=== PATIENT | male | born 1965 | race Caucasian/White ===

== ENCOUNTER 2018-09-06 15:24 | Outpatient (REF) | payer MEDICARE, MEDICAID, SELFPAY ==
[2018-09-06 21:57] LABS: ALT 30 U/L (12-78); AST 13 U/L (15-37); Alkaline Phosphatase 94 U/L (46-116); Anion Gap 9.5 mmol/L (3-11); BUN 15 mg/dL (7-18); Bilirubin, Total 0.4 mg/dL (0.2-1.0); CO2 26.5 mmol/L (21.0-32.0); CREATININE 0.69 mg/dL (0.70-1.30); Calcium 8.8 mg/dL (8.5-10.1); Chloride 103 mmol/L (98-107); Glucose 99 mg/dL (70-100); Potassium 4.3 mmol/L (3.5-5.1); Sodium 139 mmol/L (136-145); Total Protein 6.8 g/dL (6.4-8.2)
== END 2018-09-06 15:44 ==
LOC: NCHCN 15:24
PROVIDERS: PCP Family Medicine; Visit Provider Specialist/Technologist Athletic Trainer
DX: I10 Essential (primary) hypertension (principal); Z51.81 Encounter for therapeutic drug level monitoring
CPT/HCPCS: 80053

== ENCOUNTER 2019-03-12 22:41 | Outpatient (REF) | payer MEDICARE, MEDICAID, SELFPAY ==
[2019-03-12 22:16] LABS: ALT 31 U/L (16-63); AST 18 U/L (15-37); Albumin 4.1 g/dL (3.4-5.0); Alkaline Phosphatase 95 U/L (46-116); Anion Gap 9.1 mmol/L (3-11); BUN 14 mg/dL (7-18); Bilirubin, Total 0.6 mg/dL (0.2-1.0); CO2 26.9 mmol/L (21.0-32.0); CREATININE 0.98 mg/dL (0.70-1.30); Calcium 8.7 mg/dL (8.5-10.1); Chloride 107 mmol/L (98-107); Glucose 101 mg/dL (70-100); Potassium 4.2 mmol/L (3.5-5.1); Sodium 143 mmol/L (136-145); Total Protein 6.9 g/dL (6.4-8.2)
== END 2019-03-12 23:01 ==
LOC: NCHCN 22:41
PROVIDERS: Specialist/Technologist Athletic Trainer; PCP Family Medicine; Visit Provider Family Medicine
DX: I10 Essential (primary) hypertension (principal); F17.200 Nicotine dependence, unspecified, uncomplicated
CPT/HCPCS: 80053

== ENCOUNTER 2019-04-22 09:42 | Emergency (ER) | payer MEDICARE, MEDICAID, SELFPAY ==
[2019-04-22 09:48] VITALS: BP 172/102; PULSE 120; RESP 16; TEMP 36.6; O2SAT 94
[2019-04-22] MEDS: Ibuprofen 600 MG TAB PO (10:00)
--- NOTE | 2019-04-22 10:05 | ED.GENADUL_ITS ---
Discharge Plan Disposition Patient Disposition: HOME Condition: Stable Discharge Details Chief Complaint: Nk/Back Pain Clinical Impression: Acute torticollis Primary Care Provider: Judith Amezcua V ED Provider: Marv Pulliam Home Meds and New Rx's Prescriptions: No Action aspirin [Aspir-81] 81 MG tablet,delayed release (DR/EC) 81 mg PO DAILY RF: 0 diazepam 2 MG tablet 1 mg PO HS PRNRF: 0 risperidone [Risperdal] 3 MG tablet 3 mg PO DAILY RF: 0 valsartan-hydrochlorothiazide [Diovan HCT] 1 TAB tablet 160 mg PO DAILY RF: 0 Discharge Instructions Instructions: Spasmodic Torticollis (ED) Additional Instructions: 1. Drink plenty of fluids. 2. Continue all medications as prescribed. 3. Acetaminophen 1000mg every 4 hours (up to 5 time a day) and/or ibuprofen 600mg every 6 hours as needed for fever or pain. 4. Ice to sore area frequently. Return to the Emergency Department (ED) if your condition worsens, does not improve as expected, or for ANY other concerns. Specifically, return if you have new or uncontrolled pain, worsening fever, difficulty breathing, vomiting, or are unable to drink fluids. Medical Decision Making [id number] presents with acute onset of right-sided soft tissue paracervical neck pain and tenderness. Exam consistent with acute torticollis. Discussed likely inflammatory etiology with patient. Treated in the ED with oral ibuprofen discharged with a plan for continued OTC analgesia. Given usual and customary return instructions prior to discharge. Medical Records Medical records reviewed: Yes I reviewed the patient's medical records. HPI 53-year-old gentleman with a past medical history which includes GERD, hypertension, and schizoaffective disorder. Presents with acute onset of right posterior lateral neck pain. Symptoms were present when he woke this morning. They are worse with direct palpation, positional change and head rotation. He denies any associated fever/chills, visual changes, difficulty with speech, difficulty swallowing, or upper extremity weakness. He has taken no analgesia for his symptoms prior to presentation. General Date/Time Provider Initiated Documentation: 04/22/19 09:58 . Related Data Home Medications Medication Instructions Recorded Confirmed risperidone [Risperdal] 3 mg PO DAILY 12/04/15 04/22/19 valsartan-hydrochlorothiazide 160 mg PO DAILY 12/04/15 04/22/19 [Diovan HCT] aspirin [Aspir 81] 81 mg PO DAILY 01/12/16 04/22/19 diazepam 1 mg PO HS PRN 01/12/16 04/22/19 Allergies Allergy/AdvReac Type Severity Reaction Status Date / Time acetaminophen [From Percocet] Allergy Unverified 04/22/19 09:51 bupropion HCl Allergy Unverified 04/22/19 09:51 [From Wellbutrin] haloperidol [From Haldol] Allergy Unverified 04/22/19 09:51 haloperidol lactate Allergy Unverified 04/22/19 09:51 [From Haldol] oxycodone HCl [From Percocet] Allergy Unverified 04/22/19 09:51 General Stated Complaint: Nk/Back Pain LUZMARIA: 3 Review of Systems All systems reviewed & are unremarkable except as noted in HPI and below PFSH Medical History GERD (gastroesophageal reflux disease) Hypertension Schizoaffective disorder Tobacco dependence Surgical History Colonoscopy - IV Sedation (01/12/16) Social History Smoking/Tobacco Use Status: Current every day Tobacco Type: cigarettes Alcohol Intake: never Drug use: Never Exam Narrative Exam Narrative: Nursing note and vital signs have been reviewed and noted. GENERAL: alert, active, no acute distress, well -hydrated, well-nourished HEENT: atraumatic/normocephalic, PERRLA, EOMI, conjunctiva clear, external ears/canals normal, nasal mucosa normal NECK: supple, full range of motion; right-sided superior paracervical soft tissue tenderness. Palpation reproduced subjective pain. No significant erythema, induration or ecchymosis. CARDIOVASCULAR: nl pulses, no edema PULMONARY: nl effort, no audible wheezing or stridor ABDOMEN: non-distended EXTREMITY: normal muscle tone, all joints with FROM, no deformity NUERO: normal mentation, moving all extremities, normal stance and gait, PSYCH: alert and oriented SKIN: no new rashes or lesions Course Vital Signs Vital signs: Vital Signs Temperature 97.9 F 04/22/19 09:48 Pulse 120 H 04/22/19 09:48 Respiratory Rate 16 04/22/19 09:48 Blood Pressure 172/102 H 04/22/19 09:48 Pulse Oximetry 94 L 04/22/19 09:48 Temperature 97.9 F 04/22/19 09:48 Temperature Source Skin 04/22/19 09:48 Pulse 120 H 04/22/19 09:48 Respiratory Rate 16 04/22/19 09:48 Respiratory Effort Non-Labored 04/22/19 09:48 Blood Pressure 172/102 H 04/22/19 09:48 Blood Pressure Position Sitting 04/22/19 09:48 Pulse Oximetry 94 L 04/22/19 09:48 Oxygen Delivery Method Room Air 04/22/19 09:48 Oxygen Flow Rate 0 04/22/19 09:48 Pain Level 2 04/22/19 09:58
[2019-04-22 10:09] VITALS: BP 165/95; PULSE 109; RESP 16; TEMP 36.6; O2SAT 94
== END 2019-04-22 10:07 | disposition home or self-care (01) ==
LOC: ER 10:36
PROVIDERS: Emergency Provider Emergency Medicine; PCP Family Medicine
DX: M43.6 Torticollis (principal); I10 Essential (primary) hypertension
CPT/HCPCS: 99282

== ENCOUNTER 2020-02-12 09:29 | Outpatient (REF) | payer MEDICARE, MEDICAID, SELFPAY ==
[2020-02-12 23:04] LABS: ALT 28 U/L (16-63); AST 15 U/L (15-37); Albumin 4.2 g/dL (3.4-5.0); Alkaline Phosphatase 96 U/L (46-116); Anion Gap 6.2 mmol/L (3-11); BUN 15 mg/dL (7-18); Bilirubin, Total 0.9 mg/dL (0.2-1.0); CO2 29.8 mmol/L (21.0-32.0); CREATININE 0.92 mg/dL (0.70-1.30); Calculated LDL 106 mg/dL (<100); Chloride 103 mmol/L (98-107); Cholesterol 172 mg/dL (<200); Glucose 106 mg/dL (74-106); HDL Cholesterol 34 mg/dL (40-60); Potassium 4.2 mmol/L (3.5-5.1); Sodium 139 mmol/L (136-145); Triglyceride 161 mg/dL (<150)
== END 2020-02-12 09:49 ==
LOC: NCHCN 09:29
PROVIDERS: PCP Family Medicine; Visit Provider Nurse Practitioner Family
DX: E78.5 Hyperlipidemia, unspecified (principal); I10 Essential (primary) hypertension
CPT/HCPCS: 80053; 80061

== ENCOUNTER 2020-06-30 16:09 | Outpatient (REF) | payer MEDICARE, MEDICAID, SELFPAY ==
[2020-06-30 19:26] LABS: ALT 34 U/L (16-63); AST 15 U/L (15-37); Albumin 4.3 g/dL (3.4-5.0); Alkaline Phosphatase 93 U/L (46-116); Anion Gap 4.7 mmol/L (3-11); BUN 17 mg/dL (7-18); Bilirubin, Total 0.5 mg/dL (0.2-1.0); CO2 30.3 mmol/L (21.0-32.0); CREATININE 0.8 mg/dL (0.70-1.30); Calcium 9.2 mg/dL (8.5-10.1); Calculated LDL 41 mg/dL (<100); Chloride 102 mmol/L (98-107); Cholesterol 113 mg/dL (<200); Glucose 104 mg/dL (74-106); HDL Cholesterol 49 mg/dL (40-60); Potassium 4.3 mmol/L (3.5-5.1); Sodium 137 mmol/L (136-145); Total Protein 7.4 g/dL (6.4-8.2); Triglyceride 116 mg/dL (<150)
== END 2020-06-30 16:10 | disposition home or self-care (01) ==
LOC: NCHCN 16:09
PROVIDERS: PCP Family Medicine; Visit Provider Nurse Practitioner Family
DX: I10 Essential (primary) hypertension (principal); E78.5 Hyperlipidemia, unspecified; Z51.81 Encounter for therapeutic drug level monitoring
CPT/HCPCS: 80053; 80061

== ENCOUNTER → 2020-11-19 15:10 | Outpatient (BNVA) | payer MEDICARE, MEDICAID, SELFPAY | PROVIDERS: PCP Family Medicine; Referring Provider Family Medicine; Visit Provider Physical Therapy Assistant | DX: Z12.11 Encounter for screening for malignant neoplasm of colon (principal); Z86.010 Personal history of colon polyps; I10 Essential (primary) hypertension; J44.9 Chronic obstructive pulmonary disease, unspecified ==

== ENCOUNTER 2020-11-27 11:05 | Day surgery (SDC) | payer MEDICARE, MEDICAID, SELFPAY ==
--- NOTE | 2020-11-26 13:55 | NUR.NOTE ---
This RN was informed by surgical associates to do all correspondence through [facility] Carol Hu, there were multiple attempts made to contact her, as well as two voicemail messages with the patients arrival time and instructions were left. Did not receive any return call regarding this patient. Informed office, which stated we should attempt to contact a Nancy (at [facility]). X2 attempts with voicemail and instructions and arrival time left as well. No return phone calls received from [facility]. Informed office of failed correspondence: Mary Hinds from [facility] was able to reach out to the patient, and stated the less people that talked with him the better, as he gets easily confused, and Mary had formed a good rapport with the patient, so instructions and pre-op was done through Mary with assistance from this RN. Mary stated patient stated understanding for instructions and arrival time.Nursing Note:
[2020-11-27 11:34] VITALS: BP 135/85; PULSE 85; RESP 16; TEMP 36.6; O2SAT 95
[2020-11-27] MEDS: Lactated Ringers 1,000 ML 80 ML IV (11:46)
--- NOTE | 2020-11-27 12:53 | W.ANESPRE ---
General Info Date of Service Date Performed: 11/27/20 Height: 5 ft 10 in Weight: 110.6 kg Body Mass Index (BMI): 34.9 Surgical Procedure: Operation Date: 11/27/20 11:50 Proposed Procedures Side Surgeon didi Whittington DO Meds Allergies and Home Medications Allergies Allergy/AdvReac Type Severity Reaction Status Date / Time bupropion HCl Allergy Unverified 11/27/20 11:33 [From Wellbutrin] haloperidol [From Haldol] Allergy Unverified 11/27/20 11:33 haloperidol lactate Allergy Unverified 11/27/20 11:33 [From Haldol] oxycodone HCl [From Percocet] Allergy Unverified 11/27/20 11:33 Home Medication Medication Instructions Recorded aspirin [Aspir 81] 81 mg PO DAILY 01/12/16 paliperidone palmitate 156 mg/mL 156 mg IM .Q 4 weeks ml 08/12/20 intramuscular syringe propranolol 10 mg tablet 10 mg PO DAILY tab 08/12/20 risperidone 2 mg tablet 2 mg PO DAILY 08/12/20 simvastatin 20 mg tablet 40 mg PO QAM 08/12/20 losartan 25 mg tablet 50 mg PO DAILY tab 11/13/20 Current Visit Medications: Current Medications Generic Name Dose Route Start Last Admin Trade Name Freq PRN Reason Stop Dose Admin Hyoscyamine Sulfate 0.125 mg 11/27/20 10:40 Hyoscyamine 0.125 Mg Sl/Oral/Chew SL DIRECTED PRN Ringer's Solution 1,000 mls @ 80 mls/hr 11/27/20 06:00 11/27/20 11:46 IV 12/26/20 23:59 80 mls/hr INFUSION CHICO Administration IV Miscellaneous Supplies 1 each 11/27/20 06:00 Iv Access IV 12/26/20 23:59 DIRECTED CHICO Ondansetron HCl 4 mg 11/27/20 10:40 Ondansetron 4 Mg/2 Ml Vial IVP Q4H PRN PRN Nausea / Vomiting Sodium Chloride 0 ml 11/27/20 06:00 Normal Saline Flush 10 Ml Syr IV 12/26/20 23:59 PRN PRN Sodium Chloride 0 ml 11/27/20 06:00 Normal Saline 10 Ml Vial IJ 12/26/20 23:59 DIRECTED PRN Sterile Water 0 ml 11/27/20 06:00 Water,Injection,Sterile 10 Ml Vial IJ 12/26/20 23:59 DIRECTED PRN PFSH Active Problems Active Problems: Problem Status Onset Code Screening for colon cancer Z12.11 Medical History Medical History Cerumen impaction COPD (chronic obstructive pulmonary disease) GERD (gastroesophageal reflux disease) Hyperlipidemia Hypertension Obesity Schizoaffective disorder Tobacco dependence Surgical History Surgical History Colonoscopy - IV Sedation (01/12/16) History of colonoscopy Tobacco Smoking/Tobacco Use Status: Current every day Tobacco Type: cigarettes Alcohol Alcohol Intake: never Substance Use Substance use: Never Vital Signs and Lab Results Vital Signs Most Recent Vital Signs in EMR: Most Recent Vital Signs Temp Pulse Resp BP Pulse Ox 36.6 C 85 16 135/85 95 11/27/20 11:34 11/27/20 11:34 11/27/20 11:34 11/27/20 11:34 11/27/20 11:34 Lab Results Blood Type / Crossmatch: No Data to Display Complete Blood Count: No Data to Display Complete Metabolic Panel: No Data to Display Liver Function Panel: No Data to Display Coagulation Panel: No Data to Display Cardiac Panel: No Data to Display Arterial Blood Gas: No Data to Display Venous Blood Gas: No Data to Display Pancreas Panel: No Data to Display Thyroid Panel: No Data to Display Infectious Disease: No Data to Display Blood Cultures: No Data to Display Toxicology Panel: No Data to Display Anesthesia Assessment and Plan Anesthesia History Personal History: No History of Anesthesia Complications Family History: No Family History of Anesthesia Complications Exercise Tolerance Exercise Tolerance: Metabolic Equivalents>4 Pertinent Negatives Pertinent Negatives: No Symptoms of GERD, No Major Cardiovascular Symptoms or Complaints, No Major Pulmonary Symptoms or Complaints and No History of CVA/TIA Cardiac & Pulmonary Exam Cardiac Exam: Normal S1/S2 Heart Sounds Pulmonary Exam: Clear Bilateral Breath Sounds Airway Exam Known Difficult Airway: No Mallampati Class: 2 Mouth Opening: Normal (> 3cm) Thyromental Distance: Greater than 3 cm Neck Range of Motion: Full ROM Neck Circumference: Normal Teeth Condition: Normal Dentition ASA Classification ASA Score: ASA 2 Emergency Case?: No NPO Status NPO Status: NPO Clears >2 hours, Solids >8 hours Anesthesia Plan Resuscitation Status: Full Code Anesthesia Technique: General Anesthesia Airway Planned: Natural Airway Monitors Used: Standard Monitors
[2020-11-27 13:00] VITALS: BMI 34.9
--- NOTE | 2020-11-27 13:37 | BOWEL_PTH ---
PATIENT: Luisito Gray LOC: [facility] U#:[id number] AGE/SX: 55/M ROOM: RE11/27/[address]: Diana Whittington : 1965 BED: DIS: 11/27/2020 SPEC #: [id number] RECD: 11/27/20 16:40 STATUS: BOUBACAR REYris #: [id number] HAFSA: 11/27/20 13:[address]: Diana Whittington DEPT: Surgical Specimen RECD BY: Jennyfer Cardenas ENTERED: 11/27/20 16:43 SP TYPE: Bowel OTHR DR: Judith Amezcua V Tissues: 1 - BIOPSY BOWEL 2 - BIOPSY BOWEL 3 - BIOPSY BOWEL 4 - BIOPSY BOWEL 5 - BIOPSY BOWEL Procedures: GROSS AND MICRO LEVEL 4 Comments: [id number]
[2020-11-27 14:05] VITALS: BP 99/50; PULSE 83; RESP 16; TEMP 36.7; O2SAT 94
--- NOTE | 2020-11-27 14:10 | W.ANESPOSTOP ---
Postoperative Evaluation Date, Time and Location Date Performed: 11/27/20 Time Performed: 14:10 Patient Location: Day Surgery Unit Vital Signs Most Recent Imported Vital Signs: Most Recent Vital Signs Temp Pulse Resp BP Pulse Ox 36.7 C 83 16 99/50 L 94 11/27/20 14:05 11/27/20 14:05 11/27/20 14:05 11/27/20 14:05 11/27/20 14:05 Most Recent Manually Entered Vital Signs: Adult Blood Pressure: 99/50 Heart Rate: 76 Respirations: 15 Oxygen Saturation (%): 94 Temperature (C): 36.7 C Pain Score (0-10 Scale): 0 Pain Score Most Recent Pain Score: Most Recent Pain Score Pain Level 0 11/27/20 14:05 Assessment Mental Status: Arousable with meaningful communication Airway and Respiratory Function: Patent airway with normal (patient baseline) respiratory exam Cardiovascular Function: Hemodynamically Stable Hydration Status: Adequately Hydrated Nausea & Vomiting: No Nausea or Vomiting Pain: Pt. Denies Any Pain Peripheral Nerve Block: Patient did not receive a nerve block
[2020-11-27 14:12] VITALS: BP 99/50; PULSE 76; RESP 15; TEMPC 36.7; O2SAT 94
--- NOTE | 2020-11-27 14:21 | PDOC.DSDIS_ITS ---
Discharge Plan Disposition Patient Disposition: HOME Condition: Good Discharge Details Reason For Visit: colon scope Attending Provider: Diana Whittington Primary Care Provider: Judith Amezcua V Home Meds and New Rx's Prescriptions: No Action simvastatin 20 mg tablet 40 mg PO QAM RF: 0 propranolol 10 mg tablet 10 mg PO DAILY RF: 0 risperidone [Risperdal] 2 mg tablet 2 mg PO DAILY RF: 0 Invega Sustenna 156 mg/mL syringe 156 mg IM .Q 4 weeks RF: 0 losartan 25 mg tablet 50 mg PO DAILY RF: 0 aspirin [Aspir-81] 81 MG tablet,delayed release (DR/EC) 81 mg PO DAILY RF: 0 Discharge Instructions Additional Instructions: DSU Colonoscopy Post- Op Instructions Instructions for Everyone who is given Anesthesia: For your safety, please do the following for the next twenty-four (24) hours: *Do Not operate a motor vehicle (car, truck, motorcycle, etc.) *Do Not drink alcoholic beverages or use any recreational drugs for the first 24 hours or while taking pain medications. The medications in your body may have a reaction that can be dangerous. *Do Not make any important decisions or sign any important papers. Findings: diverticula multiple polyps Follow up: We will send a letter in 2 to 3 weeks, detailing what types of polyps they were and when we want you to repeat your colonoscopy. 1. No lifting over 20 pounds or strenuous activity for the first 24 hours after your procedure. After 24 hours there are no restrictions on your activity but you may feel fatigued for a few days. 2. After you arrive home you may have a light meal and return to your normal diet as you can tolerate it without feeling sick to your stomach. 3. You may have a bloated, gaseous feeling in your belly (abdomen) after a colonoscopy. Passing gas and belching will help. Walking or lying down on your left side with your knees flexed may relieve the discomfort. Call the office at [phone] (Office) or [phone] (Hospital) right away if you notice any of the following: a.Vomiting of blood or ?coffee ground stools?. b.Rectal bleeding 1Tbsp, blood clots or continuous bleeding. c.Severe belly (abdominal) pain. d.A hard distended belly (abdomen) and an inability to pass gas. 4. Please don?t expect to have a normal BM (bowel movement) for 2-3 days after your procedure. 5. If there are questions regarding the findings of your procedure, please contact your doctor 6. If you are unable to contact your doctor with a problem, contact the hospital at [phone]. 7. Continue all your regular medications unless directed otherwise. I understand the above instructions and have no questions. Signature of Patient or Adult Escort Name of Responsible Adult Escort Signature of Nurse Date/Time Activity:: see above Diet:: see above Discharge Orders Discharge Orders: Discharge Order (Routine); Ordered 11/27/20 Ordered By: Diana Whittington DS: Diagnosis Discharge Diagnosis (1) Adenomatous polyps: Status: Acute (2) Diverticula of colon: Status: Acute
--- NOTE | 2020-11-27 14:24 | W.COLOREPORT ---
Colonoscopy Report Procedure Description: After informed consent was obtained the patient was taken to the procedure room and placed in a left decubitous position. Monitors were applied and a time out was done. The patients name, date of , procedure, allergies to medications and metal in their body was reviewed. The patient was then sedated. Once sedated and comfortable a rectal exam was done. External exam was normal. Internal exam revealed a normal sphincter tone and no palpable masses. The scope was then introduced and retrofelexed. No internal hemorrhoids were identified. The scope was then advanced to the cecum w/out difficulty. The TI and appendiceal orifice were identified. The prep was adequate-there was stool adhered to the sidewalls. This was lavaged extensively. The scope was then slowly retracted over 15 minutes back into the rectum. He has moderate diverticula confined to the sigmoid colon. There is no signs of active bleeding or infection. He has multiple polyps removed. He has a 5mm flat polyp in the cecum that is removed with a cold biting forceps. He had a 0.75 cm flat polyp removed at 80 cm with a hot biting forcep. This jewel look like a serrated. It was injected w/ saline prior to using a hot snare. A clip is placed over the resulting defect. He had a small 5 mm flat polyp at 90 cm that is removed with a cold cold biting forcep. He had his 0.75 cm flat polyp at 20 cm that forcep. He had multiple 5 mm polyps in the rectum. Most likely these are hyperplastic. When result presented to the polyp was removed. It was 5 mm in size it was flat and it was removed with a cold biting forcep. All specimens are retrieved and no bleeding is noted. The colon visualized today is otherwise pink and healthy. The scope was removed and the patient was woken up and taken back to Same day surgery in stable condition. The patient tolerated the procedure well and there were no immediate complications. Follow up: The patient should follow up in 3-5- path pd, years unless they develop changes in bowel habits or other new gastrointestinal complaints.
[2020-11-27 14:31] VITALS: BP 137/89; PULSE 85; RESP 16; TEMP 36.7; O2SAT 94
== END 2020-11-27 15:15 | disposition home or self-care (01) ==
PROVIDERS: PCP Family Medicine; Visit Provider Surgery
PROC: 0DJD8ZZ Inspection of Lower Intestinal Tract, Via Natural or Artificial Opening Endoscopic (ICD-10-PCS; CPT 45378; principal; 2020-11-27 11:45)
DX: Z12.11 Encounter for screening for malignant neoplasm of colon (principal); K57.30 Diverticulosis of large intestine without perforation or abscess without bleeding; K63.5 Polyp of colon; K62.1 Rectal polyp; D12.0 Benign neoplasm of cecum
CPT/HCPCS: 45385; 45380; 45381; 88305

== ENCOUNTER 2022-08-01 15:21 | Outpatient (REF) | payer MEDICARE, MEDICAID, SELFPAY ==
[2022-08-01 21:06] LABS: Abs Immature Grans 0.02 10^3/uL (0.0-0.06); Absolute Basophil Count 0.05 10^3/uL (0.0-0.2); Absolute Eosinophil Count 0.13 10^3/uL (0.0-0.7); Absolute Lymphocyte Count 3.11 10^3/uL (1.2-3.4); Absolute Monocyte Count 0.92 10^3/uL (0.1-0.8); Absolute Neutrophil Count 6.24 10^3/uL (1.2-6.7); Basophils % 0.5; Eosinophils % 1.2; HCT 47.3 % (40.0-50.0); HGB 17.2 g/dL (13.5-17.5); Immature Grans % 0.2; Lymphocytes % 29.7; MCHC 36.4 % (32.0-36.0); MCV 88 fL (80-95); MPV 10.9 fL (8.0-11.0); Monocytes % 8.8; Neutrophils % 59.6; Platelet Count 234 10^3/uL (130-400); RBC 5.38 10^6/uL (4.36-5.78); WBC 10.47 10^3/uL (4.4-10.8)
[2022-08-02 18:45] LABS: PSA, Screening 0.3 ng/mL (<=3.5)
== END 2022-08-01 15:22 | disposition home or self-care (01) ==
LOC: NCHCN 15:21
PROVIDERS: PCP Family Medicine; Visit Provider Nurse Practitioner Family
DX: I10 Essential (primary) hypertension (principal); Z12.5 Encounter for screening for malignant neoplasm of prostate
CPT/HCPCS: 84153; 85025

== ENCOUNTER 2022-11-25 15:16 | Outpatient (REF) | payer MEDICARE, MEDICAID, SELFPAY ==
[2022-11-25 15:30] LABS: ALT 27 U/L (16-63); AST 19 U/L (15-37); Alkaline Phosphatase 95 U/L (46-116); Anion Gap 10.5 mmol/L (3-11); BUN 10 mg/dL (7-18); CO2 25.5 mmol/L (21.0-32.0); Chloride 103 mmol/L (98-107); Estimated GFR 87.24 (mL/min/1.73m2); Glucose 140 mg/dL (74-106); Potassium 3.9 mmol/L (3.5-5.1); Sodium 139 mmol/L (136-145); Total Protein 7.4 g/dL (6.4-8.2)
== END 2022-11-25 15:17 | disposition home or self-care (01) ==
LOC: NCHCN 15:16
PROVIDERS: PCP Family Medicine; Visit Provider Nurse Practitioner Family
DX: I10 Essential (primary) hypertension (principal); F17.210 Nicotine dependence, cigarettes, uncomplicated
CPT/HCPCS: 80053

== ENCOUNTER 2023-09-05 14:08 | Outpatient (REF) | payer MEDICARE, MEDICAID, SELFPAY ==
[2023-09-05 14:34] LABS: MCHC 35.6 % (32.0-36.0); MCV 87 fL (80-95); Platelet Count 223 10^3/uL (130-400); RBC 5.16 10^6/uL (4.36-5.78); RDW 12.8 % (11.8-14.1); WBC 8.44 10^3/uL (4.4-10.8)
[2023-09-05 15:05] LABS: Hemoglobin A1C 7.1 % (<5.7)
[2023-09-05 15:10] LABS: ALT 37 U/L (16-63); AST 13 U/L (15-37); Albumin 3.9 g/dL (3.4-5.0); Alkaline Phosphatase 107 U/L (46-116); Anion Gap 11.6 mmol/L (3-11); BUN 16 mg/dL (7-18); Bilirubin, Total 0.6 mg/dL (0.2-1.0); CO2 27.4 mmol/L (21.0-32.0); CREATININE 0.8 mg/dL (0.70-1.30); Calcium 9.3 mg/dL (8.5-10.1); Calculated LDL 68 mg/dL (<100); Chloride 104 mmol/L (98-107); Cholesterol 135 mg/dL (<200); Estimated GFR 102.58 (mL/min/1.73m2); Glucose 164 mg/dL (74-106); HDL Cholesterol 50 mg/dL (40-60); Potassium 4.3 mmol/L (3.5-5.1); Sodium 143 mmol/L (136-145); Total Protein 7.2 g/dL (6.4-8.2); Triglyceride 85 mg/dL (<150)
== END 2023-09-05 14:09 | disposition home or self-care (01) ==
LOC: NCHCN 14:08
PROVIDERS: PCP Family Medicine; Visit Provider Nurse Practitioner Family
DX: E78.5 Hyperlipidemia, unspecified (principal)
CPT/HCPCS: 80053; 80061; 85027; 83036

== ENCOUNTER 2024-08-21 13:56 | Outpatient (REF) | payer MEDICARE, MEDICAID, SELFPAY ==
[2024-08-21 21:21] LABS: HCT 45.6 % (40.0-50.0); HGB 16.4 g/dL (13.5-17.5); MCH 32.6 pg (27.0-33.0); MCV 91 fL (80-95); MPV 10.4 fL (8.0-11.0); Platelet Count 226 10^3/uL (130-400); RBC 5.03 10^6/uL (4.36-5.78); RDW 12.6 % (11.8-14.1); RDW-SD 41.7 fL; WBC 11.33 10^3/uL (4.4-10.8)
[2024-08-21 21:37] LABS: COMMENT (LAB VIEW ONLY) < 13.00 mg/dL
[2024-08-21 21:41] LABS: ALT 30 U/L (16-63); AST 15 U/L (15-37); Alkaline Phosphatase 98 U/L (46-116); Anion Gap 9.5 mmol/L (3-11); BUN 16 mg/dL (7-18); Bilirubin, Total 0.9 mg/dL (0.2-1.0); CO2 30.5 mmol/L (21.0-32.0); CREATININE 0.9 mg/dL (0.70-1.30); Calcium 9.6 mg/dL (8.5-10.1); Calculated LDL 38 mg/dL (<100); Chloride 104 mmol/L (98-107); Cholesterol 127 mg/dL (<200); Estimated GFR 98.38 (mL/min/1.73m2); Glucose 108 mg/dL (74-106); HDL Cholesterol 39 mg/dL (>or=40); Potassium 4.3 mmol/L (3.5-5.1); Sodium 144 mmol/L (136-145); TSH (W/Ref FT4) 0.84 uIU/mL (0.36-3.74); Triglyceride 254 mg/dL (<150)
[2024-08-22 18:37] LABS: PSA, Screening 0.3 ng/mL (<=3.5)
== END 2024-08-21 13:57 | disposition home or self-care (01) ==
LOC: NCHCN 13:56
PROVIDERS: PCP Family Medicine; Visit Provider Nurse Practitioner Family
DX: E11.9 Type 2 diabetes mellitus without complications (principal); Z51.81 Encounter for therapeutic drug level monitoring; Z12.5 Encounter for screening for malignant neoplasm of prostate
CPT/HCPCS: 80053; 80061; 84153; 85027; 82043; 82570; 84443

== ENCOUNTER 2024-09-10 09:57 | Emergency (ER) | payer MEDICARE, MEDICAID, SELFPAY ==
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
[2024-09-10 10:03] VITALS: BP 149/90; PULSE 86; RESP 12; TEMP 36.2; O2SAT 94
--- NOTE | 2024-09-10 10:15 | DI.RAD_ITS ---
Exam(s) XR SHOULDER RT COMPLETE 2+V EXAM: XR SHOULDER RT COMPLETE 2+V CLINICAL HISTORY: Right shoulder pain. TECHNIQUE: 2D digital imaging was performed. Five views. COMPARISON: No exams were available for comparison FINDINGS: BONES: No acute fracture is present. No bony destructive lesion is seen. Distal clavicular resection . JOINTS: No dislocation present. Mild degenerative changes at the glenohumeral joint. SOFT TISSUE: Normal. IMPRESSION: No acute abnormality. DATA REPOSITORY: RADIATION DOSE DELIVERED:
[2024-09-10] MEDS: Acetaminophen 500 MG TAB 1000 MG PO (10:50)
== END 2024-09-10 11:24 | disposition home or self-care (01) ==
LOC: ER 11:22
PROVIDERS: Emergency Provider Emergency Medicine; PCP Family Medicine
DX: M25.511 Pain in right shoulder (principal); G89.29 Other chronic pain; I10 Essential (primary) hypertension; E78.5 Hyperlipidemia, unspecified; J44.9 Chronic obstructive pulmonary disease, unspecified; F17.210 Nicotine dependence, cigarettes, uncomplicated; Z79.82 Long term (current) use of aspirin
CPT/HCPCS: 99283; 73030

== ENCOUNTER 2025-03-12 09:53 | Outpatient (CLI) | payer MEDICARE, MEDICAID, SELFPAY ==
--- NOTE | 2025-03-12 10:00 | RT.EKG_ITS ---
APPROVED REPORT Exam: Resting ECG Reason for Exam: High Risk Medication Use Patient Location: O HR:99 bpm ECG Measurements Heart Rate 99 AXIS OH 150 P 54 QRSd 96 QRS 41 QT 353 T 43 QTc 453 Conclusion Sinus rhythm...normal P axis, V-rate 50- 99 Probable left atrial enlargement...P >50mS, <-0.10mV V1 Baseline wander in lead(s) V2 Otherwise normal ECG
== END 2025-03-12 09:54 | disposition home or self-care (01) ==
PROVIDERS: PCP Family Medicine
DX: Z79.899 Other long term (current) drug therapy (principal)
CPT/HCPCS: 93005; 93010